=== PATIENT | female | born 1990 | race Caucasian/White ===

== ENCOUNTER → 2017-02-16 | Outpatient (CLI) | payer BC, OTHER, SELFPAY ==
[2017-02-18 12:06] LABS: CORTISOL AM 19.4 UG/DL (4.3-22.4)
== END ==
LOC: M LAB 08:20
DX: E66.09 Other obesity due to excess calories (principal)

== ENCOUNTER → 2017-02-20 | Outpatient (CLI) | payer OTHER, SELFPAY ==
--- NOTE | 2017-02-24 14:08 | SLEEPHOME ---
DATE OF STUDY: 02/20/2017 ORDERED BY: Tiffanie Victoria DO Diagnostic home sleep testing was performed due to concern for the obstructive sleep apnea syndrome in this patient with a history of daytime sleepiness and fatigue who had had an abnormal nocturnal oximetry. For testing, a NOX-T3 respiratory monitoring device was used. Continuous record was made of pulse, oxygen saturation, airflow, chest and abdominal strain, and body position. 9 hours and 59 minutes of data were reviewed. There were 6 hours and 54 minutes marked as time in bed. During the interval marked time in bed, there were only 20 respiratory events identified of 10 seconds in duration or greater for a respiratory event index of 2.9. The events were primarily hypopneic in nature. Baseline pulse rate was 75 beats per minute. Pulse rate ranged 51 to 113. Baseline saturation was 95%. Lowest oxygen saturation was 90%. Testing was performed in both the supine and nonsupine positions. Significant snoring was reported and the events were more frequent in the supine posture. IMPRESSION: Borderline diagnostic home sleep testing with repetitive respiratory events, but a respiratory event index of only 2.9 is suggestive but not confirmatory for the diagnosis of obstructive sleep apnea syndrome. Should the patient's symptoms of sleep apnea be significant, sleep position retraining for avoidance of the supine posture could be considered. If symptoms persist, referral for formal in-laboratory nocturnal polysomnography has been shown more sensitive than home testing to identify mild disease.
== END ==
LOC: M SLEEP HO 08:00
PROVIDERS: ATTEND Internal Medicine Pulmonary Disease
DX: R53.83 Other fatigue (principal)

== ENCOUNTER → 2017-03-08 | Outpatient (REF) | payer OTHER | LOC: M SFHCWAGY 14:03 | PROVIDERS: ATTEND Family Medicine | DX: Z11.3 Encounter for screening for infections with a predominantly sexual mode of transmission (principal); Z12.4 Encounter for screening for malignant neoplasm of cervix ==

== ENCOUNTER → 2018-03-14 | Outpatient (REF) | payer OTHER | LOC: M SFHCWAGY 14:01 | DX: Z12.4 Encounter for screening for malignant neoplasm of cervix (principal); Z11.3 Encounter for screening for infections with a predominantly sexual mode of transmission | CPT/HCPCS: G0123 ==

== ENCOUNTER → 2018-04-02 | Outpatient (REF) | payer OTHER ==
[2018-04-02 13:12] LABS: HEMATOCRIT 38.5 % (36.0-47.0); HEMOGLOBIN 12.9 g/dl (12.0-15.5); MEAN CORPUSCULAR HEMOGLOBIN 30.3 pg (27.0-33.0); MEAN CORPUSCULAR HGB CONC 33.5 g/dl (32.0-36.5); MEAN CORPUSCULAR VOLUME 90.4 fl (80.0-96.0); PLATELET COUNT, AUTOMATED 384 10^3/uL (150-450); RED BLOOD COUNT 4.26 10^6/uL (4.00-5.40); RED CELL DISTRIBUTION WIDTH 11.9 % (11.5-14.5); WHITE BLOOD COUNT 12.5 10^3/uL (4.0-10.0)
[2018-04-02 14:00] LABS: ANION GAP 8 MEQ/L (8-16); BLOOD UREA NITROGEN 8 MG/DL (7-18); CALCIUM LEVEL 9.1 MG/DL (8.5-10.1); CARBON DIOXIDE LEVEL 27 MEQ/L (21-32); CHLORIDE LEVEL 107 MEQ/L (98-107); CREATININE FOR GFR 0.73 MG/DL (0.55-1.30); FREE T4 1.12 NG/DL (0.76-1.46); GLOMERULAR FILTRATION RATE > 60.0 (>60); GLUCOSE, FASTING 78 MG/DL (70-100); POTASSIUM SERUM 4.3 MEQ/L (3.5-5.1); SODIUM LEVEL 142 MEQ/L (136-145)
== END ==
LOC: M LABDRAWP 11:49
DX: F32.9 Major depressive disorder, single episode, unspecified (principal)
CPT/HCPCS: 84443

== ENCOUNTER 2018-08-20 08:15 | Emergency (ER) | payer OTHER ==
[~2018-08-20] VITALS: Ht 160 cm; Wt 92.5 kg
[2018-08-20] MEDS ORDERED: TRI-1TAB20 (08:27)
[2018-08-20] MEDS ORDERED: ESCI20TA (08:27)
[2018-08-20 08:45] LABS: BASO # 0.1 10^3/uL (0.0-0.2); BASO % 0.4 % (0.0-1.0); EOS % 0.1 % (0.0-3.0); HEMATOCRIT 38.5 % (36.0-47.0); HEMOGLOBIN 12.8 g/dl (12.0-15.5); LYMPH # 1.5 10^3/uL (1.5-6.5); LYMPH % 7.2 % (24.0-44.0); MEAN CORPUSCULAR HEMOGLOBIN 30.6 pg (27.0-33.0); MEAN CORPUSCULAR HGB CONC 33.2 g/dl (32.0-36.5); MEAN CORPUSCULAR VOLUME 92.1 fl (80.0-96.0); MONO # 0.7 10^3/uL (0.0-0.8); NEUTROPHILS # 19.1 10^3/uL (1.8-7.7); NEUTROPHILS % 88.8 % (36.0-66.0); PLATELET COUNT, AUTOMATED 352 10^3/uL (150-450); RED BLOOD COUNT 4.18 10^6/uL (4.00-5.40); WHITE BLOOD COUNT 21.5 10^3/uL (4.0-10.0)
[2018-08-20] MEDS ORDERED: KETOROLAC 30 MG/ML VIAL (J1885) IV ONE (08:45)
[2018-08-20] MEDS ORDERED: ONDANSETRON 4MG/2ML VIAL (J2405) IV ONE (08:45)
[2018-08-20 09:18] LABS: ALBUMIN 3.5 GM/DL (3.2-5.2); ALT/SGPT 32 U/L (12-78); AMYLASE 68 U/L (25-115); BILIRUBIN,DIRECT < 0.1 MG/DL (0.0-0.2); BILIRUBIN,TOTAL 0.3 MG/DL (0.2-1.0); BLOOD UREA NITROGEN 11 MG/DL (7-18); CALCIUM LEVEL 8.9 MG/DL (8.5-10.1); CARBON DIOXIDE LEVEL 25 MEQ/L (21-32); CHLORIDE LEVEL 108 MEQ/L (98-107); CREATININE FOR GFR 0.78 MG/DL (0.55-1.30); GAMMA GLUTAMYLTRANSPEPTIDASE 15 U/L (5-55); GLOMERULAR FILTRATION RATE > 60.0 (>60); GLUCOSE, FASTING 152 MG/DL (70-100); LIPASE 146 U/L (73-393); POTASSIUM SERUM 3.6 MEQ/L (3.5-5.1); SODIUM LEVEL 141 MEQ/L (136-145); TOTAL PROTEIN 7.8 GM/DL (6.4-8.2)
--- NOTE | 2018-08-20 10:19 | REP ---
Clinical: Acute abdominal pain. Technique: Fox scale ultrasound using curved array transducer. Findings: The liver and pancreas are normal in contour, size, and echogenicity without focal hepatic or pancreatic lesions identified. The gallbladder demonstrates multiple stones extending into the neck without wall thickening or pericholecystic fluid. No biliary ductal dilatation is appreciated, and the common bile duct measures 2.3 mm diameter. The right kidney is normal in reniform shape without hydronephrosis and measures 12.2 x 4.5 x 4.1 cm. No ascites. Visualized portions of the abdominal aorta normal. Impression: Cholelithiasis. Correlation is recommended as no further sonographic evidence is appreciated and suggest acute cholecystitis. Electronically Signed by Brian Baron MD 08/20/2018 10:10 A
[2018-08-20] MEDS ORDERED: KETO10TAB PO (10:35)
[2018-08-20] MEDS ORDERED: ONDA4TAB6 PO (10:35)
[2018-08-20] MEDS ORDERED: NORCOTAB PO (10:35)
[2018-08-20 10:52] VITALS: BP 133/68
--- NOTE | 2018-08-20 16:16 | ED PDOC ---
Post-Departure Follow-Up dr winston faxed formal report of abdandrey ospina for Albert Wahl MD Aug 20, 2018 16:16
== END 2018-08-20 10:52 | disposition home or self-care (01) ==
LOC: M ED 08:15
DX: K80.70 Calculus of gallbladder and bile duct without cholecystitis without obstruction (principal); Z79.3 Long term (current) use of hormonal contraceptives; Z88.0 Allergy status to penicillin; Z88.1 Allergy status to other antibiotic agents
CPT/HCPCS: 36415; 76705; 80048; 80076; 81025; 82150; 82977; 83690; 85025; 96374; 96375; 99284; J1885; J2405

== ENCOUNTER → 2018-11-19 | Outpatient (REF) | payer OTHER ==
[~2018-11-19] MED LIST: ESCI20TA; HYDR-3715 PO; KETO10TAB PO; ONDA4TAB6 PO; TRI-1TAB20
[2018-11-19 12:30] LABS: HEMATOCRIT 38.3 % (36.0-47.0); HEMOGLOBIN 12.4 g/dl (12.0-15.5); MEAN CORPUSCULAR HGB CONC 32.4 g/dl (32.0-36.5); MEAN CORPUSCULAR VOLUME 92.7 fl (80.0-96.0); PLATELET COUNT, AUTOMATED 395 10^3/uL (150-450); RED BLOOD COUNT 4.13 10^6/uL (4.00-5.40); WHITE BLOOD COUNT 14.7 10^3/uL (4.0-10.0)
== END ==
LOC: M SFHCPLAZ 09:48
PROVIDERS: ATTEND Family Medicine
DX: R10.11 Right upper quadrant pain (principal)